=== PATIENT | male | born 1960 | race Caucasian/White ===

== ENCOUNTER 2017-05-21 06:09 | Emergency (ER) | payer MEDICARE, MEDICAID ==
--- NOTE | 2017-05-21 06:49 | EDM.PDOC ---
<OfficerEdgar - Last Filed: 05/21/17 09:37> ED HPI GENERAL MEDICAL PROBLEM - General Chief Complaint: Abdominal Pain Stated Complaint: BODY ACHES Time Seen by Provider: 05/21/17 06:35 - Related Data Allergies Allergy/AdvReac Type Severity Reaction Status Date / Time No Known Allergies Allergy Verified 05/21/17 06:23 Home Meds: Home Meds amLODIPine [Norvasc] 5 mg PO DAILY 03/14/16 [History] Course - Vital Signs Last Recorded V/S: Last Vital Signs Temp 37.0 C 05/21/17 08:11 Pulse 78 05/21/17 08:11 Resp 14 05/21/17 08:11 BP 139/73 05/21/17 08:11 Pulse Ox 96 05/21/17 08:11 - Orders/Labs/Meds Labs: Laboratory Tests 05/21/17 05/21/17 05/21/17 Range/Units 06:50 06:50 06:50 WBC 15.8 H (4.5-11.0) K/uL RBC 5.44 (4.30-5.90) M/uL Hgb 16.6 H D (12.0-15.0) g/dL Hct 48.4 (40.0-54.0) % MCV 89 (80-98) fL MCH 31 (27-31) pg MCHC 34 (32-36) % Plt Count 223 (150-400) K/uL Sodium 135 L (140-148) mmol/L Potassium 3.9 (3.6-5.2) mmol/L Chloride 99 L (100-108) mmol/L Carbon Dioxide 26 (21-32) mmol/L Anion Gap 13.9 (5.0-14.0) mmol/L BUN 18 (7-18) mg/dL Creatinine 1.2 (0.8-1.3) mg/dL Est Cr Clr Drug Dosing 62.77 mL/min Estimated GFR (MDRD) > 60 (>60) Glucose 103 (74-106) mg/dL Calcium 8.9 (8.5-10.1) mg/dL C-Reactive Protein 6.32 H (0.0-0.3) mg/dL Urine Color Urine Appearance Urine pH (4.5-8.0) Ur Specific [place] (1.008-1.030) Urine Protein (NEGATIVE) mg/dL Urine Glucose (UA) (NEGATIVE) mg/dL Urine Ketones (NEGATIVE) mg/dL Urine Occult Blood (NEGATIVE) Urine Nitrite (NEGAITVE) Urine Bilirubin (NEGATIVE) Urine Urobilinogen (NORMAL) mg/dL Ur Leukocyte Esterase (NEGATIVE) Urine RBC (0-5) Urine WBC (0-5) Ur Epithelial Cells Amorphous Sediment Urine Bacteria Urine Mucus 05/21/17 Range/Units 06:50 WBC (4.5-11.0) K/uL RBC (4.30-5.90) M/uL Hgb (12.0-15.0) g/dL Hct (40.0-54.0) % MCV (80-98) fL MCH (27-31) pg MCHC (32-36) % Plt Count (150-400) K/uL Sodium (140-148) mmol/L Potassium (3.6-5.2) mmol/L Chloride (100-108) mmol/L Carbon Dioxide (21-32) mmol/L Anion Gap (5.0-14.0) mmol/L BUN (7-18) mg/dL Creatinine (0.8-1.3) mg/dL Est Cr Clr Drug Dosing mL/min Estimated GFR (MDRD) (>60) Glucose (74-106) mg/dL Calcium (8.5-10.1) mg/dL C-Reactive Protein (0.0-0.3) mg/dL Urine Color Yellow Urine Appearance Clear Urine pH 5.0 (4.5-8.0) Ur Specific [place] 1.020 (1.008-1.030) Urine Protein Trace (NEGATIVE) mg/dL Urine Glucose (UA) Normal (NEGATIVE) mg/dL Urine Ketones 50 H (NEGATIVE) mg/dL Urine Occult Blood Large (NEGATIVE) Urine Nitrite Negative (NEGAITVE) Urine Bilirubin Negative (NEGATIVE) Urine Urobilinogen Normal (NORMAL) mg/dL Ur Leukocyte Esterase Negative (NEGATIVE) Urine RBC 0-5 (0-5) Urine WBC 0-5 (0-5) Ur Epithelial Cells Rare Amorphous Sediment Not seen Urine Bacteria Few Urine Mucus Few Meds: Medications Discontinued Medications Generic Name Dose Route Start Last Admin Trade Name Freq PRN Reason Stop Dose Admin Sodium Chloride 1,000 mls @ 500 mls/hr 05/21/17 07:45 05/21/17 07:52 Normal Saline IV 500 mls/hr ASDIRECTED BRUCE Administration Sodium Chloride 73 mls @ 3.3 mls/sec 05/21/17 08:00 05/21/17 08:07 Normal Saline IV 3.3 mls/sec ASDIRECTED BRUCE Administration Iopamidol 100 ml 05/21/17 07:46 05/21/17 08:07 Isovue-300 (61%) IV 05/22/17 07:47 100 ml . DIRECTED PRN Administration RADIOLOGY EXAM Sodium Chloride 10 ml 05/21/17 07:42 05/21/17 07:51 Saline Flush FLUSH 10 ml ASDIRECTED PRN Administration Keep Vein Open Sodium Chloride 10 ml 05/21/17 07:46 05/21/17 08:07 Saline Flush FLUSH 05/21/17 07:47 10 ml ONETIME ONE Administration Departure - Departure Time of Disposition: 09:40 Disposition: Home, Self-Care 01 Condition: Good Clinical Impression: Pyelonephritis - Discharge Information Instructions: Pyelonephritis, Adult, [id number] Referrals: PCP,None [Primary Care Provider] - Forms: ED Department Discharge Additional Instructions: Take full course of antibiotics, use hydrocodone as needed for pain control, Please followup with your primary care provider in 3-5 days for reevaluation, please call return to the emergency department with worsening of symptoms. - Assessment/Plan Plan: Assessment Acuity = acute Site and laterality = left pyelonephritis Etiology = suspicious for bacterial cause Manifestations = left flank pain Location of injury = Home Lab values = WBC elevated at 15.8 consistent leukocytosis, sodium low at 135 consistent hyponatremia CRP elevated at 6.32 urinalysis reveals [address] scan reveals image studies consistent with a left-sided pyelonephritis however concern for underlying neoplasm cannot be ruled out Plan I did review lab work and CT scan results with him plan is to treat with levofloxacin 500 mg by mouth daily 10 days, hydrocodone 5/325 one tab by mouth 3 times a day when necessary total #10 he is to follow-up with his primary care provider in the next 3-5 days for reevaluation and also to follow-up on CT scan Patient was in agreement with the plan all questions were answered, they were instructed to return to the emergency department or call for worsening symptoms. This note was dictated using [employer] voice recognition software please call with any questions. <Dino Nolasco - Last Filed: 05/29/17 18:04> ED HPI GENERAL MEDICAL PROBLEM - General Source of Information: Reports: Patient History Limitations: Reports: No Limitations - History of Present Illness INITIAL COMMENTS - FREE TEXT/NARRATIVE: 57 yo male presents with LLQ abdominal pain for just over 24 hrs. Gets relief with walking around. No change with eating. Has a pHx of appendicitis. No fever. No change in bowel or bladder function. Lives alone in [place], [place]. His primary is in [place], but he has not seen him for this. Has never had colonoscopy. No nausea or vomiting. Onset: Gradual Onset Date: 05/20/17 Onset Time: 03:00 Duration: Hour(s):, Getting Worse Location: Reports: Abdomen (LLQ) Quality: Reports: Ache Severity: Moderate Improves with: Reports: Other (moving around) Worsens with: Reports: Other (pressing on area. ) Context: Reports: Other (unknown) Associated Symptoms: Reports: No Other Symptoms. Denies: Fever/Chills, Nausea/ Vomiting Treatments CLINICAL FIELD SPECIALIST: Reports: Other (see below) (none) Abdominal Pain Score (Numeric/FACES): 5 Past Medical History HEENT History: Reports: Impaired Vision Cardiovascular History: Reports: Hypertension Gastrointestinal History: Reports: Other (See Below) Other Gastrointestinal History: hernia - Infectious Disease History Infectious Disease History: Reports: Chicken Pox, Measles, Mumps - Past Surgical History Cardiovascular Surgical History: Reports: None GI Surgical History: Reports: Appendectomy Social & Family History - Tobacco Use Smoking Status *Q: Unknown Ever Smoked Second Hand Smoke Exposure: No - Caffeine Use Caffeine Use: Reports: None - Recreational Drug Use Recreational Drug Use: No ED ROS GENERAL - Review of Systems Review Of Systems: See Below Constitutional: Reports: No Symptoms HEENT: Reports: No Symptoms Respiratory: Reports: No Symptoms Cardiovascular: Reports: No Symptoms GI/Abdominal: Reports: Abdominal Pain. Denies: Anorexia, Black Stool, Bloody Stool, Constipation, Diarrhea, Decreased Appetite, Distension, Hematemesis, Hematochezia, Melena, Nausea, Vomiting : Reports: No Symptoms Musculoskeletal: Reports: No Symptoms Skin: Reports: No Symptoms Neurological: Reports: No Symptoms Psychiatric: Reports: No Symptoms ED EXAM, GI/ABD - Physical Exam Exam: See Below Exam Limited By: Other (poor historian) General Appearance: Alert, WD/WN, No Apparent Distress Eyes: Bilateral: Normal Appearance Ears: Normal External Exam, Normal Canal, Hearing Grossly Normal, Normal TMs Nose: Normal Inspection, Normal Mucosa, No Blood Throat/Mouth: Normal Inspection, Normal Lips, Normal Oropharynx, Normal Voice, No Airway Compromise Head: Atraumatic, Normocephalic Neck: Normal Inspection, Supple, Non-Tender Respiratory/Chest: No Respiratory Distress, Lungs Clear, Normal Breath Sounds, No Accessory Muscle Use Cardiovascular: Regular Rate, Rhythm GI/Abdominal Exam: Normal Bowel Sounds, Soft, No Distention, Tender (LLQ). No: Distended, Guarding, Rigid, Mass Back Exam: Normal Inspection. No: CVA Tenderness (R), CVA Tenderness (L) Extremities: Normal Inspection, Normal Range of Motion, Non-Tender, No Pedal Edema Neurological: Alert, Oriented, CN II-XII Intact, Normal Cognition, No Motor/ Sensory Deficits Psychiatric: Normal Affect, Normal Mood Skin Exam: Warm, Dry, Intact, Normal Color, No Rash, Other (Old surgical scars present on the abdomen) Lymphatic: No Adenopathy Course - Orders/Labs/Meds Labs: Laboratory Tests 05/21/17 05/21/17 05/21/17 Range/Units 06:50 06:50 06:50 WBC 15.8 H (4.5-11.0) K/uL RBC 5.44 (4.30-5.90) M/uL Hgb 16.6 H D (12.0-15.0) g/dL Hct 48.4 (40.0-54.0) % MCV 89 (80-98) fL MCH 31 (27-31) pg MCHC 34 (32-36) % Plt Count 223 (150-400) K/uL Sodium 135 L (140-148) mmol/L Potassium 3.9 (3.6-5.2) mmol/L Chloride 99 L (100-108) mmol/L Carbon Dioxide 26 (21-32) mmol/L Anion Gap 13.9 (5.0-14.0) mmol/L BUN 18 (7-18) mg/dL Creatinine 1.2 (0.8-1.3) mg/dL Est Cr Clr Drug Dosing 62.77 mL/min Estimated GFR (MDRD) > 60 (>60) Glucose 103 (74-106) mg/dL Calcium 8.9 (8.5-10.1) mg/dL C-Reactive Protein 6.32 H (0.0-0.3) mg/dL Urine Color Urine Appearance Urine pH (4.5-8.0) Ur Specific [place] (1.008-1.030) Urine Protein (NEGATIVE) mg/dL Urine Glucose (UA) (NEGATIVE) mg/dL Urine Ketones (NEGATIVE) mg/dL Urine Occult Blood (NEGATIVE) Urine Nitrite (NEGAITVE) Urine Bilirubin (NEGATIVE) Urine Urobilinogen (NORMAL) mg/dL Ur Leukocyte Esterase (NEGATIVE) Urine RBC (0-5) Urine WBC (0-5) Ur Epithelial Cells Amorphous Sediment Urine Bacteria Urine Mucus 05/21/17 Range/Units 06:50 WBC (4.5-11.0) K/uL RBC (4.30-5.90) M/uL Hgb (12.0-15.0) g/dL Hct (40.0-54.0) % MCV (80-98) fL MCH (27-31) pg MCHC (32-36) % Plt Count (150-400) K/uL Sodium (140-148) mmol/L Potassium (3.6-5.2) mmol/L Chloride (100-108) mmol/L Carbon Dioxide (21-32) mmol/L Anion Gap (5.0-14.0) mmol/L BUN (7-18) mg/dL Creatinine (0.8-1.3) mg/dL Est Cr Clr Drug Dosing mL/min Estimated GFR (MDRD) (>60) Glucose (74-106) mg/dL Calcium (8.5-10.1) mg/dL C-Reactive Protein (0.0-0.3) mg/dL Urine Color Yellow Urine Appearance Clear Urine pH 5.0 (4.5-8.0) Ur Specific [place] 1.020 (1.008-1.030) Urine Protein Trace (NEGATIVE) mg/dL Urine Glucose (UA) Normal (NEGATIVE) mg/dL Urine Ketones 50 H (NEGATIVE) mg/dL Urine Occult Blood Large (NEGATIVE) Urine Nitrite Negative (NEGAITVE) Urine Bilirubin Negative (NEGATIVE) Urine Urobilinogen Normal (NORMAL) mg/dL Ur Leukocyte Esterase Negative (NEGATIVE) Urine RBC 0-5 (0-5) Urine WBC 0-5 (0-5) Ur Epithelial Cells Rare Amorphous Sediment Not seen Urine Bacteria Few Urine Mucus Few Meds: Medications Discontinued Medications Generic Name Dose Route Start Last Admin Trade Name Freq PRN Reason Stop Dose Admin Sodium Chloride 1,000 mls @ 500 mls/hr 05/21/17 07:45 05/21/17 07:52 Normal Saline IV 500 mls/hr ASDIRECTED BRUCE Administration Sodium Chloride 73 mls @ 3.3 mls/sec 05/21/17 08:00 05/21/17 08:07 Normal Saline IV 3.3 mls/sec ASDIRECTED BRUCE Administration Iopamidol 100 ml 05/21/17 07:46 05/21/17 08:07 Isovue-300 (61%) IV 05/22/17 07:47 100 ml . DIRECTED PRN Administration RADIOLOGY EXAM Sodium Chloride 10 ml 05/21/17 07:42 05/21/17 07:51 Saline Flush FLUSH 10 ml ASDIRECTED PRN Administration Keep Vein Open Sodium Chloride 10 ml 05/21/17 07:46 05/21/17 08:07 Saline Flush FLUSH 05/21/17 07:47 10 ml ONETIME ONE Administration Departure - Departure Condition: Good
[2017-05-21] MEDS ORDERED: Sodium Chloride 0.9% 10 ML Syringe FLUSH PRN (07:42)
[2017-05-21] MEDS ORDERED: Sodium Chloride 0.9% 1,000 ML IV SCH (07:45)
[2017-05-21] MEDS ORDERED: Iopamidol 612 MG/ML 100 ML Bottle IV PRN (07:46)
[2017-05-21] MEDS: Sodium Chloride 0.9% 10 ML Syringe FLUSH ONE ×2 (07:53→08:07)
[2017-05-21 08:12] VITALS: BP 139/73
--- NOTE | 2017-05-21 08:44 | CT ---
Abdomen Pelvis w Cont Total DLP 756 mGycm. INDICATION: LLQ pain COMPARISON: CT 03/26/2016. FINDINGS: The left kidney demonstrates slight decreased enhancement with perinephric edema and mild e nhancement of the left renal pelvis. Minimal left hydronephrosis. Changes of appendectomy. Large righ t inguinal hernia containing fat and nonobstructed small bowel. Prostatic enlargement. Exam otherwise unremarkable. IMPRESSION: Findings suspicious for left pyelonephritis. In discussing with Dr. Officer, the patient' s urinalysis does not completely support this diagnosis. Given the enhancement of the left renal pelv is and minimal left hydronephrosis, a urothelial malignancy in the left renal pelvis or intrarenal co llecting system is not excluded. Recommend follow-up with urology.
== END 2017-05-21 10:03 | disposition home or self-care (01) ==
LOC: JP.ED 06:09
DX: N12 Tubulo-interstitial nephritis, not specified as acute or chronic (principal); I10 Essential (primary) hypertension; Z79.899 Other long term (current) drug therapy
CPT/HCPCS: 36415; 74177; 80048; 81001; 85027; 86140; 96360; 96361; 99283; 99284; J7030; J7040; J7050; Q9967